=== PATIENT | male | born 2000 | race Caucasian/White ===

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

== ENCOUNTER 2025-01-01 19:00 | Emergency (ER) | payer SELFPAY ==
[~2025-01-01] VITALS: Ht 165.1 cm; Wt 109.0 kg
[2025-01-01 21:34] VITALS: BP 156/101; PULSE 100; RESP 16; TEMP 36.7; O2SAT 98
[2025-01-01] MEDS: IBUPROFEN 400MG TABLET PO ONE (21:53)
[2025-01-01] MEDS: ACETAMINOPHEN 325MG TABLET PO ONE (21:55)
== END 2025-01-01 21:57 | disposition home or self-care (01) ==
LOC: ER 19:00
DX: R50.9 Fever, unspecified (principal); J45.909 Unspecified asthma, uncomplicated; Z88.0 Allergy status to penicillin
CPT/HCPCS: 99283